=== PATIENT | male | born 1990 | race Caucasian/White ===

== ENCOUNTER 2020-10-19 18:04 | Emergency (ER) | payer SELFPAY ==
--- NOTE | 2020-10-19 18:20 | ER ---
Nurse's Notes [facility] Name: Terry Hebert Age: 30 yrs Sex: Male : 1990 Arrival Date: 10/19/2020 Time: 18:06 Bed 19 Private MD: Diagnosis: Presentation: 10/19 18:00 Chief complaint: EMS states: call was for unresponsive/cpr in progress, when we arrived tw2 pt was unresponsive and cyanotic on scene, we continued cpr, started bagging him, pupils pinpoint, we gave 2 mg narcan nasally, we got an iv and gave 2mg iv narcan, pt started pulling iv out, so we got a 20 g LEFT ac, then gave a 3rd 2mg narcan iv and he started to come around, initially HR was in 30's. Coronavirus screen: At this time, the client does not indicate any symptoms associated with coronavirus-19. Ebola Screen: Patient denies travel to an Ebola-affected area in the 21 days before illness onset. Initial Sepsis Screen: Does the patient meet any 2 criteria? HR > 90 bpm. No. Patient's initial sepsis screen is negative. Does the patient have a suspected source of infection? No. Patient's initial sepsis screen is negative. Risk Assessment: Do you want to hurt yourself or someone else? Patient reports no desire to harm self or others. Note pt states "i am ready to go home, i dont want to be here", provider notified. 18:00 Method Of Arrival: EMS: [facility] tw2 18:07 Note provider ANDI Parisi at bedside at this time, pt requesting to go AMA. Onset of tw2 symptoms was October 19, 2020. 18:07 Acuity: JOSE 2 tw2 Triage Assessment: 18:11 General: Appears in no apparent distress. Behavior is fussy. Pain: Denies pain. EENT: tw2 No signs and/or symptoms were reported regarding the EENT system. EENT:. Neuro: Level of Consciousness is awake, alert, obeys commands, Oriented to person, place, situation. Neuro: Pupils are pinpoint. Cardiovascular: Patient's skin is warm and dry. Respiratory: Airway is patent Respiratory effort is even, unlabored, Respiratory pattern is regular, symmetrical. GI: No signs and/or symptoms were reported involving the gastrointestinal system. : No signs and/or symptoms were reported regarding the genitourinary system. Derm: No signs and/or symptoms reported regarding the dermatologic system. Musculoskeletal: Range of motion: intact in all extremities. Vital Signs: 18:00 BP 138 / 89; Pulse 106; Resp 17; Temp 98.0(O); Pulse Ox 100% on R/A; Weight 102.06 kg tw2 (R); Height 6 ft. 0 in. (182.88 cm); 18:00 Body Mass Index 30.52 (102.06 kg, 182.88 cm) tw2 ED Course: 18:00 Maintain EMS IV. Dressing intact. Good blood return noted. Site clean \\T\\ dry. Gauge \\T\\ tw 2 site: . 18:06 Patient arrived in ED. tw2 18:09 Obed Araiza PA is PHCP. jr8 18:09 Hermilo Zamora MD is Attending Physician. jr8 18:11 Triage completed. tw2 18:11 Arm band placed on. tw2 18:18 IV discontinued, intact, bleeding controlled, No redness/swelling at site. Pressure tw2 dressing applied, pt states "yeah im just leaving my girl is here", provider Andi Thomas at bedside explaining AMA. 18:19 Erika Hughes RN is Primary Nurse. tw2 Administered Medications: No medications were administered Outcome: 18:20 AMA AMA form signed tw2 18:20 unknown 18:20 Patient left the ED. tw2 Signatures: Obed Araiza PA PA jr8 Erika Hughes RN RN tw2
--- NOTE | 2020-10-20 18:21 | EDPHYS ---
Physician Documentation [facility] Name: Terry Hebert Age: 30 yrs Sex: Male : 1990 Arrival Date: 10/19/2020 Time: 18:06 Bed 19 Private MD: ED Physician Hermilo Zamora HPI: 10/19 21:58 This 30 yrs old Male presents to ER via EMS with complaints of post jr8 respiratory arrest. 21:58 Patient stated that he took Roxicodone at a friends house to relax. Did not know he was jr8 taking so much. EMS stated that they were called out for cardiac arrest initially. Stated that they arrived on scene to find a cyanotic apneic patient with palpable pulses. Immediately gave narcan and resuscitated patient. Patient upon arrival to ED was alert and oriented to person, place, time, event. Currently without complaints . 22:15 Onset: The symptoms/episode began/occurred acutely, today. Severity of symptoms: At jr8 their worst the symptoms were moderate in the emergency department the symptoms are unchanged. The patient has not experienced similar symptoms in the past. The patient has not recently seen a physician. ROS: 22:15 Eyes: Negative for injury, pain, redness, and discharge, ENT: Negative for injury, jr8 pain, and discharge, Neck: Negative for injury, pain, and swelling, Cardiovascular: Negative for chest pain, palpitations, and edema, Respiratory: Negative for shortness of breath, cough, wheezing, and pleuritic chest pain, Abdomen/GI: Negative for abdominal pain, nausea, vomiting, diarrhea, and constipation, Back: Negative for injury and pain, MS/Extremity: Negative for injury and deformity, Skin: Negative for injury, rash, and discoloration, Neuro: Negative for headache, weakness, numbness, tingling, and seizure. Exam: 22:15 Eyes: Pupils equal round and reactive to light, extra-ocular motions intact. Lids and jr8 lashes normal. Conjunctiva and sclera are non-icteric and not injected. Cornea within normal limits. Periorbital areas with no swelling, redness, or edema. ENT: Nares patent. No nasal discharge, no septal abnormalities noted. Tympanic membranes are normal and external auditory canals are clear. Oropharynx with no redness, swelling, or masses, exudates, or evidence of obstruction, uvula midline. Mucous membranes moist. Neck: Trachea midline, no thyromegaly or masses palpated, and no cervical lymphadenopathy. Supple, full range of motion without nuchal rigidity, or vertebral point tenderness. No Meningismus. Cardiovascular: Regular rate and rhythm with a normal S1 and S2. No gallops, murmurs, or rubs. Normal PMI, no JVD. No pulse deficits. Respiratory: Lungs have equal breath sounds bilaterally, clear to auscultation and percussion. No rales, rhonchi or wheezes noted. No increased work of breathing, no retractions or nasal flaring. Abdomen/GI: Soft, non-tender, with normal bowel sounds. No distension or tympany. No guarding or rebound. No evidence of tenderness throughout. Back: No spinal tenderness. No costovertebral tenderness. Full range of motion. Skin: Warm, dry with normal turgor. Normal color with no rashes, no lesions, and no evidence of cellulitis. MS/ Extremity: Pulses equal, no cyanosis. Neurovascular intact. Full, normal range of motion. Neuro: Awake and alert, GCS 15, oriented to person, place, time, and situation. Cranial nerves II-XII grossly intact. Motor strength 5/5 in all extremities. Sensory grossly intact. Cerebellar exam normal. Normal gait. Vital Signs: 18:00 BP 138 / 89; Pulse 106; Resp 17; Temp 98.0(O); Pulse Ox 100% on R/A; Weight 102.06 kg tw2 (R); Height 6 ft. 0 in. (182.88 cm); 18:00 Body Mass Index 30.52 (102.06 kg, 182.88 cm) tw2 MDM: 18:09 Patient medically screened. jr8 22:38 Data reviewed: vital signs, nurses notes. Data interpreted: Pulse oximetry: on room air jr8 is 100 %. Interpretation: normal. Counseling: I had a detailed discussion with the patient and/or guardian regarding: the historical points, exam findings, and any diagnostic results supporting the discharge/admit diagnosis. ED course: After assessing patient, patient no longer wanted us to see him and continue evaluation. Explained to patient that he could have today due to his overdose. That we need to at least observe him for the next several hours to make sure he does not become stuporous and have another decline in respiratory drive. Patient stated that he feels much better and regardless of what we say wants to still go home with his girlfriend. Patient can answer all questions appropriately. Has no altered mentation at this time. Currently is of sound mine. Explained to him that we cannot force him to stay but that we medically advise him that this is poor judgment on his behalf and that we cannot be responsible for any adverse outcome if he leaves without further treatment. Patient again understood and signed our AMA form . 10/19 18:09 Order name: Acetaminophen 8 10/19 18:09 Order name: Basic Metabolic Panel [facility] 10/19 18:09 Order name: CBC with Diff [facility] 10/19 18:09 Order name: ETOH Level [facility] 10/19 18:09 Order name: Hepatic Function [facility] 10/19 18:09 Order name: EKG; Complete Time: 18:10 [facility] 10/19 18:09 Order name: EKG - Nurse/Tech [facility] 10/19 18:09 Order name: IV Saline Lock [facility] 10/19 18:09 Order name: Labs collected and sent [facility] 10/19 18:09 Order name: Urine Dipstick-Ancillary (obtain specimen) [facility] Administered Medications: No medications were administered Disposition: 10/19/20 18:20 Patient has left against medical advice. - Patients states they are going to Home. - Condition is Undetermined. Addendum: 10/21/2020 18:36 Co-signature as Attending Physician, Hermilo Zamora MD. m a2 Signatures: Dispatcher [employer] EDObed Bates PA PA jr8 Erika Hughes RN RN tw2 Hermilo Zamora MD MD ma2 Corrections: (The following items were deleted from the chart) 10/19 22:30 21:58 Patient stated that he took Roxicodone at a friends house to relax. Did not know jr8 he . jr8
== END 2020-10-19 18:20 | disposition left against medical advice (07) ==
LOC: ER 18:04
DX: R23.0 Cyanosis (principal); R06.81 Apnea, not elsewhere classified
CPT/HCPCS: 99282

== ENCOUNTER 2021-07-22 02:28 | Emergency (ER) | payer BC, SELFPAY ==
--- NOTE | 2021-07-22 04:19 | ER ---
Nurse's Notes [facility] Name: Terry Hebert Age: 31 yrs Sex: Male : 1990 Arrival Date: 07/22/2021 Time: 02:42 Bed Waiting Private MD: Diagnosis: Presentation: 07/22 04:17 Chief complaint: EMS states: they brought pt for complaint of chronic back pain after bb pt arrested pt refused to answer any questions in triage and said he does not know why he is here. Pt left here in police custody. ED Course: 02:42 Patient arrived in ED. wm Administered Medications: No medications were administered Outcome: 04:19 Patient left the ED. bb Signatures: Aishwarya Buitrago RN RN bb Ama Campos
== END 2021-07-22 04:19 | disposition left against medical advice (07) ==
LOC: ER 02:28
DX: Z53.21 Procedure and treatment not carried out due to patient leaving prior to being seen by health care provider (principal)
CPT/HCPCS: 99281

== ENCOUNTER 2022-11-28 18:15 | Emergency (ER) | payer BC, SELFPAY ==
--- NOTE | 2022-11-28 18:34 | EDPHYS ---
Physician Documentation [facility] Name: Terry Hebert Age: 32 yrs Sex: Male : 1990 Arrival Date: 11/28/2022 Time: 18:15 Bed 13 Private MD: ED Physician Dane Penn HPI: 11/28 18:24 This 32 yrs old Male presents to ER via Unassigned with complaints of overdose. kb 18:24 The patient presents to the emergency department after a known overdose, a result of recreational substance abuse. Context: Method: the patient has a confirmed or suspected inhalation, some unknown opiod. The patient has not recently seen a physician. 18:56 Associated signs and symptoms: Pertinent positives: decreased level of consciousness. kb Severity of symptoms: At their worst the symptoms were moderate severe in the emergency department the symptoms have resolved. The patient has experienced a previous episode. EMS reports pt snorted a pill that pt reports was 30mg of some opiod. EMS reports PD administered 4mg of narcan IN prior to their arrival. Pt had snoring respirations upon EMS arrival, nasal trumpet was placed. All symptoms resolved in route. Pt now A\T\Ox4, resp even and unlabored, oxygen 100% on room air. Pt states he was just trying to have fun. Denies homicidal or suicidal ideations. . Historical: - Allergies: 18:31 No Known Allergies; eh3 - Immunization history:: Adult Immunizations unknown. - Social history:: Smoking status: unknown. ROS: 18:56 Constitutional: Negative for fever, chills, and weight loss. kb 18:56 All other systems are negative. Exam: 18:52 Constitutional: This is a well developed, well nourished patient who is awake, alert, kb and in no acute distress. Head/Face: Normocephalic, atraumatic. ENT: Moist Mucous membranes Cardiovascular: Regular rate and rhythm with a normal S1 and S2. No gallops, murmurs, or rubs. No pulse deficits. Respiratory: Respirations even and unlabored. No increased work of breathing. Talking in full sentences Abdomen/GI: Soft, non-tender. No distention Skin: Warm, dry with normal turgor. Normal color. MS/ Extremity: Pulses equal, no cyanosis. Neurovascular intact. Full, normal range of motion. Neuro: Awake and alert, GCS 15, oriented to person, place, time, and situation. Moves all extremities. Normal gait. MDM: 18:20 Patient medically screened. kb 18:52 Differential diagnosis: Ingestion/exposure to opiods over medication, drug abuse. Data kb reviewed: vital signs, nurses notes. Management of patient was discussed with the following: Dr Penn. Historians other than the Patient: EMS: [facility]. Counseling: I had a detailed discussion with the patient and/or guardian regarding: the historical points, exam findings, and any diagnostic results supporting the discharge/admit diagnosis, the need for outpatient follow up, a family practitioner, to return to the emergency department if symptoms worsen or persist or if there are any questions or concerns that arise at home. Refusal of service: The patient/guardian displays adequate decision making capability and despite a detailed discussion of alternatives, benefits, risks, and consequences refuses: all lab tests, Medications. ED course: Pt states he is feeling fine and wants to go home. Discussed need to stay for observation for at least 4 hours and to check tylenol level. Educated on risk of if he leaves without any further evaluation or treatment. Verbal understanding received. Pt still wants to go home. . ED course: Patient has decided to leave our facility AGAINST MEDICAL ADVICE. I have assessed the patient's ability to make an informed decision and it is my opinion at this time that the patient has the medical decision-making capacity to comprehend information regarding current medical condition and appreciates the impact of the disease or condition and the consequences of various options for treatment, including foregoing treatment. The patient possesses the ability to evaluate all treatment options, compare the risk and benefits of each option, communicate choice and is able to make rational choices. I have explained to the patient further testing, treatment, and evaluation I would like to perform during the current emergency department visit as well as any possible alternatives that could be accomplished in a timely manner. I have outlined the possible risk of foregoing any or all of these interventions and the patient understands and acknowledges that the decision to leave may result in undesirable consequences such as , permanent disability, and/or loss of current lifestyle. Even though leaving AMA a is not ideal, I have instructed the patient to follow any discharge instructions given, take any medications prescribed and resume care as soon as possible with another provider. Additionally, I have clearly stated that the patient is welcome to return at any time to continue care at our facility.. 11/28 18:20 Order name: EKG; Complete Time: 18:21 kb 11/28 18:20 Order name: EKG - Nurse/Tech 11/28 18:20 Order name: IV Saline Lock 11/28 18:20 Order name: Labs collected and sent 11/28 18:20 Order name: Suicide Screening ([place]) kb Administered Medications: No medications were administered Disposition: 19:39 Co-signature as Attending Physician, Dane Penn MD I reviewed the patient's care rt provided by the Advanced Practice Provider and agree with the diagnosis and treatment plan. Disposition Summary: 11/28/22 18:34 Discharge Ordered Location: Home kb Condition: Stable kb Diagnosis - Overdose kb Followup: kb - With: Emergency Department - When: As needed - Reason: Worsening of condition Followup: kb - With: Private Physician - When: 2 - 3 days - Reason: Recheck today's complaints, Continuance of care, Re-evaluation by your physician Discharge Instructions: - Discharge Summary Sheet kb - Opioid Overdose kb Forms: - Medication Reconciliation Form kb - Thank You Letter kb - Antibiotic Education kb - Prescription Opioid Use kb Signatures: Dispatcher [employer] EDShea Lewis, KIERAN-C WELDER GAS-Elba Camacho, MERY RN 3 Dane Penn MD MD rt
--- NOTE | 2022-11-28 18:34 | ER ---
Nurse's Notes [facility] Name: Terry Hebert Age: 32 yrs Sex: Male : 1990 Arrival Date: 11/28/2022 Time: 18:15 Bed 13 Private MD: Diagnosis: Overdose Presentation: 11/28 18:28 Chief complaint: EMS states: toned out for possible overdose. Pt states he snorted what eh3 he thinks was 1 30mg oxycodone about an hour ago. EMS reports pinpoint pupils, BP 160/130 on scene, BP went down to 123/78 in ambulance, EMS reports normal EKG, sinus rhythm, 100% SPO2 on room air. Coronavirus screen: Vaccine status: Patient reports receiving the 2nd dose of the covid vaccine. Ebola Screen: No symptoms or risks identified at this time. Risk Assessment: Do you want to hurt yourself or someone else? Patient reports no desire to harm self or others. Onset of symptoms was November 28, 2022. 18:28 Method Of Arrival: EMS: [facility] 3 18:28 Acuity: JOSE 2 eh3 Triage Assessment: 18:31 General: Appears in no apparent distress. comfortable, Behavior is flat. Pain: Denies eh3 pain. Neuro: Level of Consciousness is awake, obeys commands. Cardiovascular: Capillary refill < 3 seconds Patient's skin is warm and dry. Respiratory: Airway is patent Respiratory effort is even, unlabored, Respiratory pattern is regular, symmetrical. Historical: - Allergies: 18:31 No Known Allergies; eh3 - Immunization history:: Adult Immunizations unknown. - Social history:: Smoking status: unknown. Screenin:[facility] ED Fall Risk Assessment (Adult) Score/Fall Risk Level 3 or more points = High eh3 Risk. Abuse screen: Denies threats or abuse. Denies injuries from another. Nutritional screening: No deficits noted. Tuberculosis screening: No symptoms or risk factors identified. Assessment: 18:32 Reassessment: No changes from previously documented assessment. See triage assessment. eh3 Overdose: 18:33 [place] Suicide Severity Screening: "In the past month, have you wished you were eh3 or wished you could go to sleep and not wake up?" Patient responds "no." "In the past month, have you actually had any thoughts of killing yourself?" Patient responds "no." "In your lifetime, have you ever done anything, started to do anything, or prepared to do anything to end your life?" Patient responds "no.". 18:34 [place] Suicide Severity Screening: "In the past month, have you wished you were eh3 or wished you could go to sleep and not wake up?" Patient responds "no." "In the past month, have you actually had any thoughts of killing yourself?" Patient responds "no." "In your lifetime, have you ever done anything, started to do anything, or prepared to do anything to end your life?". ED Course: 18:20 Patient arrived in ED. louis 18:20 She[facility] Arnold [facility]C [facility]. kb 18:20 Dane Penn MD is Attending Physician. kb 18:28 Elba Isaac, MERY is Primary Nurse. eh3 18:31 Arm band placed on. eh3 18:32 Patient has correct armband on for positive identification. eh3 18:32 No provider procedures requiring assistance completed. Maintain EMS IV. Dressing eh3 intact. Site clean \\T\\ dry. Gauge \\T\\ site: 20g LAC. IV discontinued, intact, bleeding controlled, No redness/swelling at site. Pressure dressing applied. 18:34 Triage completed. eh3 Administered Medications: No medications were administered Medication: 18:32 VIS not applicable for this client. eh3 Outcome: 18:32 Discharged to home ambulatory. eh3 18:32 Condition: unchanged 18:32 Instructed on safety practices. 18:34 Discharge ordered by . kb 18:34 Patient left the ED. eh3 Signatures: Shea Arnold FNP-C FNP-Ckb Botello, Elizabeth Elba Isaac, RN RN eh3 Corrections: (The following items were deleted from the chart) 18:35 18:34 [place] Suicide Severity Screening: "In the past month, have you wished you were eh3 or wished you could go to sleep and not wake up?" Patient responds "no." Patient responds "yes." Based off client's responses, additional C-SSRS screening questions required. "In the past month, have you actually had any thoughts of killing yourself?" Patient responds "no." eh3 18:35 18:34 [place] Suicide Severity Screening: "In the past month, have you actually had eh3 any thoughts of killing yourself?" Patient responds "no." eh3 18:47 18:46 Patient left the ED. eh3 eh3
== END 2022-11-28 18:46 | disposition home or self-care (01) ==
LOC: ER 18:15
DX: T40.601A Poisoning by unspecified narcotics, accidental (unintentional), initial encounter (principal)
CPT/HCPCS: 99283

== ENCOUNTER 2023-03-02 18:44 | Emergency (ER) | payer SELFPAY ==
[2023-03-02] MEDS ORDERED: LIDOCAINE 1% W/EPI 1:100,000 50 ML MDV ONE (19:10)
[2023-03-02] MEDS ORDERED: CEPHALEXIN 250 MG CAP ONE (19:19)
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
[2023-03-02] MEDS ORDERED: MUPIROCIN 2% OINT 22GM TUBE TOP ONE (19:57)
[2023-03-02 20:05] VITALS: TEMP 97.4; O2SAT 100
[2023-03-02 20:07] VITALS: BP 131/86
--- NOTE | 2023-03-02 20:23 | RAD REPORT ---
EXAM DESCRIPTION: RAD - Forearm Right - 03/02/2023 8:17 pm CLINICAL HISTORY: PAIN COMPARISON: <Comparisons> FINDINGS: No fracture, dislocation or aggressive marrow lesion. Small laceration seen distal forearm laterally. Tiny radiopaque foreign body may be present.
== END 2023-03-02 19:58 | disposition home or self-care (01) ==
LOC: ER 18:44
PROC: 0HQDXZZ Repair Right Lower Arm Skin, External Approach (ICD-10-PCS; principal; 2023-03-02)
DX: S51.811A Laceration without foreign body of right forearm, initial encounter (principal)
CPT/HCPCS: 99284